=== PATIENT | female | born 1990 | race Caucasian/White ===

== ENCOUNTER → 2022-07-09 08:26 | Outpatient (BNVA) | payer OTHER, SELFPAY | PROVIDERS: PCP Pediatrics; Visit Provider Physician Assistant ==

== ENCOUNTER → 2022-09-03 08:30 | Outpatient (BNVA) | payer OTHER, SELFPAY | PROVIDERS: Visit Provider Physician Assistant | DX: E66.01 Morbid (severe) obesity due to excess calories (principal); J45.909 Unspecified asthma, uncomplicated; Z68.43 Body mass index [BMI] 50.0-59.9, adult | CPT/HCPCS: 99202 ==

== ENCOUNTER 2022-09-04 15:08 | Outpatient (REF) | payer OTHER, SELFPAY | END 2022-09-04 15:09 | disposition home or self-care (01) | LOC: HO.LNP 15:08 | PROVIDERS: PCP Pediatrics; Visit Provider Physician Assistant | DX: Z01.818 Encounter for other preprocedural examination (principal); E66.01 Morbid (severe) obesity due to excess calories; J45.909 Unspecified asthma, uncomplicated | CPT/HCPCS: 83013; 99211 ==

== ENCOUNTER 2022-09-17 10:25 | Outpatient (REF) | payer OTHER, SELFPAY ==
--- NOTE | ~2022-09-17 | XR_ITS ---
EXAMINATION: XR CHEST CLINICAL INFORMATION: Morbid (severe) obesity due to excess calories COMPARISON: None available. TECHNIQUE: 2 views of the chest were obtained. 1100. FINDINGS: No significant abnormality is noted involving the heart, lungs, mediastinum, bony thorax or soft tissues. XR/XR chest 2V IMPRESSION: Unremarkable examination.
--- NOTE | ~2022-09-17 | US_ITS ---
EXAMINATION: US COMPLETE ABDOMEN WITH LIVER ELASTOGRAPHY CLINICAL INFORMATION: Obesity. COMPARISON: CT abdomen and pelvis dated 07/02/2018. TECHNIQUE: Real-time imaging of the abdominal viscera. Noninvasive ultrasound liver fibrosis assessment is performed using Bryon ElastPQ point quantification shear wave elastography (2D-SWE) with a C5-2 MHz transducer. Multiple elastography samples are obtained. FINDINGS: PANCREAS: Normal. The visualized pancreatic head and body are normal in appearance. The remainder of the pancreas is obscured from visualization by the overlying bowel gas. ABDOMINAL AORTA: The proximal, middle, and distal aortic segments are normal in caliber. INFERIOR VENA CAVA: Visualized portions are normal. LIVER: There is hepatomegaly. The liver is normal in contour and shows generally increased echogenicity. No focal lesion or intrahepatic biliary duct dilatation. The right lobe measures 19.5 cm in length. The left lobe measures 12.4 cm in length. Portal flow is towards the liver (hepatopetal). Shear wave liver elastography median stiffness is 1.53 m/s (reference: normal median stiffness is 1.3 m/s or less). IQR/median stiffness to assess sampling precision is 0.15 (reference: good quality data set is IQR/median stiffness of 0.15 or less). GALLBLADDER: Normal. The gallbladder is physiologically distended without evidence of stones, sludge, polyps, wall thickening or pericholecystic fluid. COMMON BILE DUCT: Normal in caliber measuring 0.6 cm in diameter. RIGHT KIDNEY: Normal. No hydronephrosis. No renal calculi or focal parenchymal lesions. The kidney measures 11.2 cm in maximum dimension. LEFT KIDNEY: Normal. No hydronephrosis. No renal calculi or focal parenchymal lesions. The kidney measures 11.4 cm in maximum dimension. SPLEEN: Normal. The spleen measures 11.3 cm in maximum dimension. FREE FLUID: None. US/US abdomen comp w elastography IMPRESSION: 1. There is generalized increase in hepatic echotexture, consistent with fatty infiltration or hepatocellular disease. Please correlate clinically. No focal hepatic mass or intrahepatic biliary dilatation is seen. 2. There is hepatomegaly. 3. Liver elastography: In the absence of other known clinical signs, measurements rule out compensated advanced chronic liver disease. If there are known clinical signs, further testing may be needed for confirmation. REFERENCE: Society of Radiologists in Ultrasound Liver Stiffness Thresholds (2020): LIVER STIFFNESS THRESHOLDS: *Liver Stiffness equal or less than 1.3 m/s: High probability of being normal. *Liver Stiffness less than 1.7 m/s: In the absence of other known clinical signs, rules out compensated advanced chronic liver disease. *Liver Stiffness 1.7-2.1 m/s: Suggestive of compensated advanced chronic liver disease but need further test for confirmation. *Liver Stiffness over 2.1 m/s: Rules in compensated advanced chronic liver disease. *Liver Stiffness over 2.4 m/s: Suggestive of clinically significant portal hypertension. QUALITY OF DATA SET: *IQR/Median value equal or less than 0.15 implies a quality data set. *IQR/Median value over 0.15 implies a poor quality data set. SIGNIFICANT CHANGE FROM PRIOR EXAM: Significant change if liver stiffness measurement is 10% or greater from prior exam. OTHER CONSIDERATIONS: The stage of liver fibrosis may be overestimated in the setting of acute hepatitis, liver inflammation, elevated liver function tests, hepatic vascular congestion, obstructive cholestasis, non-fasting state, and infiltrative diseases such as amyloidosis and lymphoma. In some patients with NAFLD, the liver stiffness thresholds for compensated advanced chronic liver disease may be lower. In causes other than viral hepatitis and NAFLD, liver stiffness thresholds are not well established.
[2022-09-17 11:23] LABS: MANUAL DIFF FLAG NO
[2022-09-17 11:41] LABS: Basophils Absolute Auto 0.1 X10*3/uL (0.0-0.2); Basophils Percent Auto 0.7 % (0-2); Eosinophils Absolute Auto 0.5 X10*3/uL (0.0-0.4); Eosinophils Percent Auto 6.5 % (0-4); Hematocrit 40.9 % (37.0-47.0); Imm Gran Abs Auto 0.04 X10*3/uL (0.00-0.03); Imm Gran Pct Auto 0.6 % (0.0-0.4); Lymphocytes Absolute Auto 1.6 X10*3/uL (1.2-4.9); Lymphocytes Percent Auto 22.5 % (20-40); Mean Corpuscular HGB Conc 31.8 g/dl (31.0-35.0); Mean Corpuscular Hemoglobin 28.5 pg (27.0-33.0); Mean Corpuscular Volume 89.7 fL (80.0-98.0); Mean Platelet Volume 9.7 fL (9.4-12.3); Monocytes Absolute Auto 0.5 X10*3/uL (0.1-1.2); Monocytes Percent Auto 6.5 % (2-11); Neutrophils Absolute Auto 4.4 x10*3/uL (2.0-8.3); Neutrophils Percent Auto 63.2 % (45-73); Platelet Count 276 X10*3/uL (160-400); Red Blood Count 4.56 X10*6/uL (4.20-5.50); Red Cell Distribution Width 13.8 % (11.0-16.0)
[2022-09-17 11:52] LABS: Estimated Average Glucose 105 mg/dL; Hemoglobin A1c % 5.3 %
[2022-09-17 13:19] LABS: Folate 11.8 ng/mL (> or = 4.0); Vitamin B12 412 pg/mL (200-900)
[2022-09-18 02:19] LABS: Alanine Aminotransferase 19 U/L (0-31); Albumin Level 3.8 g/dL (3.5-5.0); Alkaline Phosphatase 98 U/L (39-117); Anion Gap 9 (12-20); Aspartate Amino Transferase 17 U/L (5-31); Bilirubin Total 0.5 mg/dL (0.0-1.0); Blood Urea Nitrogen 11 mg/dL (9-16); C Reactive Protein 1.66 mg/dL (< or = 0.50); Calcium 8.9 mg/dL (8.4-10.2); Carbon Dioxide 26 mmol/L (22-29); Chloride 107 mmol/L (96-108); Cholesterol 150 mg/dL; Estimated Glomerular Filt Rate > 60; Ferritin 31 ng/mL (10-122); Glucose Random 100 mg/dL (60-115); HDL Cholesterol 45 mg/dL; Insulin 22 uU/mL (2-29); Iron 82 mcg/dL (30-160); LDL Cholesterol Calculated 83 mg/dl; Percent Iron Saturation 26 % (15-50); Sodium 138 mmol/L (135-145); TSH reflex Free T4 1.92 uIU/mL (0.32-4.0); Total Iron Binding Capacity 313 mcg/dL (228-428); Total Protein 6.8 g/dL (6.5-8.0); Triglycerides 112 mg/dL; Unsaturated Iron Binding 231 ug/dL; Vitamin D 25-OH Total 14.4 ng/mL (>30)
[2022-09-20 05:43] LABS: PTHI 68 pg/mL (16-77)
[2022-09-22 11:08] LABS: Vitamin A 34 mcg/dL (38-98)
[2022-09-22 16:13] LABS: Zinc 72 mcg/dL (60-130)
== END 2022-09-17 10:26 | disposition home or self-care (01) ==
LOC: HO.US 10:25
PROVIDERS: PCP Pediatrics; Visit Provider Physician Assistant
DX: Z01.818 Encounter for other preprocedural examination (principal); E66.01 Morbid (severe) obesity due to excess calories; J45.909 Unspecified asthma, uncomplicated
CPT/HCPCS: 36415; 71046; 76705; 76981; 80053; 80061; 82306; 82607; 82728; 82746; 83036; 83525; 83540; 83970; 84425; 84443; 84590; 84630; 85025; 86140

== ENCOUNTER 2022-10-03 08:48 | Outpatient (AMB) | payer OTHER, SELFPAY ==
--- NOTE | 2022-10-03 08:57 | A.OFFVIS_ITS ---
Intake VS Expanded 10/03/22 08:59 Height 5 ft Weight 302 lb BMI 59.0 BP 138/76 Blood Pressure Location Rt brachial Blood Pressure Position Sitting Pulse 83 Pulse Source Pulse Oximeter Temp 97.5 F Temperature Source Temporal Artery Scan Pulse Oximetry 97 Oxygen Delivery Method Room Air Body Fat 142.6 Body Fat Percentage 47.3 Free Fat Mass 159.2 Muscle Mass 151.2 Visceral Mass 18.0 Water Mass 114.2 BMR 2,299 Intake Visit Reasons: (OV) F/U SWL Allergies No Known Allergies Allergy (Verified 10/03/22 08:58) HPI HPI Comments History of Present Illness Details This is the patients second appt for SWL. Starting weight was 303 lbs on 09/03/22. TBWL is 1 lb. Work schedule has changed and will only be working 1 night from 11 pm - 7am. 4d/ week 3pm - 11pm. Meal plan: wakes up at 7am 8:30 am - coffee with almond milk - with 2 hb eggs. 3/d/week and the 4 d has Slim Fast - 21 grams? 2pm - 6 oz (weighs in) chicken breast with lettuce - also likes broccoli and green beans. water 4pm - bar 6:30 pm - another meal - at work Exercise plan: treadmill - started 10 days ago. Now 4 d/ week - speed ?, incline ?, for 1 hour, caloreis ?? 300 Pre op work up completed as follows: SWL classes - appts - Vilma 10/10 RD appts - 10/07 H pylori - negative Labs - done CXR - NAD ECG - not done yet ULS - fatty liver R 19.5, L 12.4 UGI - 10/24 PFSH Surgical History Hx of hernia repair Family History Mother Thyroid disease Father Diabetes Sister No problems noted. Sister No problems noted. Brother No problems noted. Brother No problems noted. Daughter Asthma Daughter Asthma Social History Alcohol intake: never Patient Tobacco Use Status: Never used Tobacco Physical Exam Vital Signs: Last Vital Signs Temp 97.5 F 10/03/22 08:59 Pulse 83 10/03/22 08:59 BP 138/76 10/03/22 08:59 Pulse Ox 97 10/03/22 08:59 Oxygen Delivery Method Room Air 10/03/22 08:59 BMI result Body Mass Index 59.0 Assessment & Plan Assessment & Plan (1) Morbid obesity: Code(s): E66.01 - Morbid (severe) obesity due to excess calories Plan: Pt was not following our plans well due to change in schedule and not understanding exactly what to do. We spent a lot of time helping her create plans she can adhere to. meal plan - on overnights - can have another bar or shake at 3 am when hungry 8:30 am- coffee - with a bar 12 pm - 30 gram shake 3pm - shake 6:30 pm - 6 oz protein and vegetable - lean meats and needs more varitey of v egetables. 9 pm - bar as needed. Exercise - treadmill 4d/ week 10 wagner/minute. speed 2.8, incline 2-7 fro 350 calories burned. All upcoming appts and results reviewed. Next appt with me in 3 weeks. Patient is morbidly obese and is not considered stable at this time. I spent 30 minutes in total with patient reviewing/updating records, examining the patient and counseling the patient on weight management as detailed above. Coding Level of Care Code Est Pt Level 4 (84649) Diagnoses Morbid obesity E66.01
[2022-10-03 08:59] VITALS: BP 138/76; PULSE 83; TEMP 36.4; O2SAT 97; BMI 59.0
== END 2022-10-03 09:37 | disposition home or self-care (01) ==
PROVIDERS: PCP Pediatrics; Visit Provider Physician Assistant
DX: E66.01 Morbid (severe) obesity due to excess calories (principal); Z68.43 Body mass index [BMI] 50.0-59.9, adult
CPT/HCPCS: 99214

== ENCOUNTER → 2022-10-03 08:48 | Outpatient (BNVA) | payer OTHER, SELFPAY | PROVIDERS: PCP Pediatrics; Visit Provider Physician Assistant | DX: E66.01 Morbid (severe) obesity due to excess calories (principal); Z68.43 Body mass index [BMI] 50.0-59.9, adult | CPT/HCPCS: 99212 ==

== ENCOUNTER 2022-10-22 13:39 | Outpatient (AMB) | payer OTHER, SELFPAY ==
--- NOTE | 2022-10-22 13:33 | MHC.AMNUTRGE ---
Intake Intake Visit Reasons: VIDEO Initial Nutrition SWL Retail Stocker Required: No Allergies No Known Allergies Allergy (Verified 10/03/22 08:58) HPI Nutrition Presentation Reason for consult elevated BMI Diet Assmnt Details I am not doing good at all - doesn't like the shakes, mainly the texture that she dislikes. She has a 20 g protein Slim-Fast shakes, she is willing to continue wtih these Recognizes she lets herself get too hungry then wants to eat everything eats too much Protein bars - using atkins bars but 180kcal, 7g protein Today (1:30pm) hasn't had any shakes or anything. [facility] classes: None Dietary counseling reduction Who buys your food self Who prepares/cooks your food self Meal frequency regular: lunch (coffee ), dinner (6:30-7pm rice, chicken, fried pork, pork, wrap ) and snacks (at night - cookie ) and never: breakfast Lifestyle Eating out 4 or more times/week Exercise No Food frequency Dairy: daily, Fruit: occasionally, Vegetables: occasionally (likes several vegetables ), Grains/pasta/breads/cereal (carbs): daily, Meats/poultry/fish (protein): daily, Meat substitutes/nuts/seeds/legumes: several times weekly, Processed foods/meats: several times weekly, Restaurants/fast foods: several times weekly, Soda: daily, Juice: daily and Coffee: daily Diagnosis Nutrition problem #1 overweight/obesity As related to (etiology) #1 excess energy intake and physical inactivity As evidenced by (sign/symptom) #1 high BMI Monitoring/Goals Nutrition problem monitoring total energy intake, level of knowledge/skill, total PRO intake, total CHO intake and weight Outcome progress progressing Learning/Education Readiness to learn good Stages of change action Educational materials provided Yes Most Recent Diabetes Results: Cholesterol 150 mg/dL 09/17/22 HDL Cholesterol 45 mg/dL 09/17/22 Triglycerides 112 mg/dL 09/17/22 Creatinine 0.58 mg/dL (0.5-1.4) 09/17/22 Blood Urea Nitrogen 11 mg/dL (9-16) 09/17/22 Sodium 138 mmol/L (135-145) 09/17/22 Potassium 4.0 mmol/L (3.3-5.1) 09/17/22 Chloride 107 mmol/L (96-108) 09/17/22 Carbon Dioxide 26 mmol/L (22-29) 09/17/22 Calcium 8.9 mg/dL (8.4-10.2) 09/17/22 AST 17 U/L (5-31) 09/17/22 ALT 19 U/L (0-31) 09/17/22 Total Protein 6.8 g/dL (6.5-8.0) 09/17/22 Albumin 3.8 g/dL (3.5-5.0) 09/17/22 PFSH Surgical History Hx of hernia repair Family History Mother Thyroid disease Father Diabetes Sister No problems noted. Sister No problems noted. Brother No problems noted. Brother No problems noted. Daughter Asthma Daughter Asthma Social History Alcohol intake: never Patient Tobacco Use Status: Never used Tobacco Assessment & Plan Assessment & Plan (1) Morbid obesity: Code(s): E66.01 - Morbid (severe) obesity due to excess calories Patient Instructions: Has not made any changes to eating habits yet. Discussed the importance of protein for weight loss and eating on a consistent schedule. She will start her nutrition plan today. Change atkins bars for versions that contain at least 16 g of protein per bar. Complete online classes. Follow-up in 4 weeks Telehealth Telehealth Location of provider rendering services: practice address Location of patient: address on file Patient Identification confirmed using: Name, : Yes Telehealth method: video Patient verbally consented to treatment: Yes Patient verbally consented to billing insurance company: Yes Patient informed of any privacy concerns related to visit: Yes Minutes spent on Phone/Video with Pt.: 25 Coding Level of Care Code Nutr Indiv Intake (56339) Diagnoses Morbid obesity E66.01 Time Spent (min) 25
== END 2022-10-23 09:29 | disposition home or self-care (01) ==
LOC: HO.HBS 13:39
PROVIDERS: PCP Pediatrics; Visit Provider Dietitian, Registered
DX: E66.01 Morbid (severe) obesity due to excess calories (principal)

== ENCOUNTER → 2022-10-22 13:39 | Outpatient (BNVA) | payer OTHER, SELFPAY | PROVIDERS: PCP Pediatrics; Visit Provider Dietitian, Registered | DX: E66.01 Morbid (severe) obesity due to excess calories (principal) | CPT/HCPCS: 97802 ==

== ENCOUNTER 2022-10-27 13:00 | Outpatient (AMB) | payer OTHER, SELFPAY ==
--- NOTE | 2022-10-27 13:10 | A.OFFWM_ITS ---
Intake Intake Visit Reasons: VIDEO BH Intake Allergies No Known Allergies Allergy (Verified 10/03/22 08:58) PFSH Surgical History Hx of hernia repair Family History Mother Thyroid disease Father Diabetes Sister No problems noted. Sister No problems noted. Brother No problems noted. Brother No problems noted. Daughter Asthma Daughter Asthma Social History Alcohol intake: never Patient Tobacco Use Status: Never used Tobacco Behavioral Health Assessment Weight Management Therapy Therapy Notes Details PT is a 31 year old, , Brazilian-Speaking female who presents for initial BH assessment as part of surgical weight loss program. Presenting Concerns Referral Source WMP Provider, PT sees Valeria Maria . PT was referred [place] [facility] [place] PCP. Reason for referral Completion of behavioral health assessment as part of process for weight-loss surgery. Precipitating Event PT doesn't feels comfortable with body and weight, also gets easily tired and has realized that with current weight she will have future health issues she wants to avoid. Living Situation Current Living Situation Rent At risk of losing current housing? No Satisfied with current living situation? Yes Comments Pt lives with partner, 2 daughters and her mother. Food/Weight/Diet Expectations of change PT reported her provider told her, she's is expected to loss at least 30Lbs before surgery. She wants to focus on healthy habits and focus on william steps at the time since she gets overwhelmed and is afraid to stop program due to discouragement. History/Relationship with food Before starting the program she didn't have a set schedule for meals. Used to skip meals, leading to be very hungry and overeating. Example of daily meals: -Breakfast: 10am when not skipped. Example: eggs, sandwich, coffee. -Lunch: Skipped/ when not used to eat around 3pm. Rice or potatoes, meat. Fast food. -Dinner: usually around 8pm. Rice/beans/meat or fried food, fast food, take-out (pizza, Burmese, etc.) . Started meal plan on 09/01, currently struggling with the taste/texture of shakes and keep meal schedule. History/Relationship with weight PT reports she has always been overweight. At age 17 she was already over 200Lbs. At 23 she had her first daughter and was 250Lbs for couple years until second . After second daughter was born she reached over 300Lbs. Max weight: 306Lbs Lowest: 200Lbs at age 17. History/Relationship with dieting Beach body, Keto diet (lost 14Lbs in 2 weeks), eating changes, cutting in carbs. Usually tries for couple weeks and stops when don't see major weight loss or gets stuck in a number. Binge Eating Do you frequently eat large amounts of food in short periods of time, not feeli ng physically hungry? Yes Do you feel out of control when you eat a large amount of food in a short period of time? No Do you eat large amounts of food rapidly and typically alone? Yes Night Eating Do you wake up at least once during the night to eat? Yes If you wake up in the night, do you find that it is necessary to eat something in order to fall back asleep? No Do you have little or no appetite in the morning and feel very hungry in the evening, often overeating between dinner and when you go to bed? Yes Social History Family history and relationship PT has been in a long-term relationship with daughter's father 9 years ago. They have 2 daughters. Parents are alive, they are , mom lives with her, dad lives in [place]. she has 4 siblings. PT reports good family relationships. 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 7 and 3 years old. Developmental history and status Within normal limits. Social support Partner, mother, siblings. Some friends. Community support PCP Alevism/Spirituality None. Cultural/Ethnic information Born in [place]. Living in [place] 6 years ago. Brazilian is primary language but PT does speak [place] too. Legal Involvement and History Current or historical involvement with the legal system? None reported. Education Highest grade completed 12th Grade. Has 1 year degree in nursing. 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 Has her [place] [employer] license. Preferred learning style Learn by doing Currently enrolled in educational program? No Interested in further educational program? Yes (Nursing.) Educational Interests/Skills Pt wants to pursuit a nursing degree. 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 No Meaningful activities Family activities. Listen to music. Financial Situation Describe current financial situation Comfortable Financial assistance? Food [place] Service Service? No Mental Health and Addiction Treatment Current/Past substance abuse? No Current/Past addictive behavior concerns? No Psychiatric history Attended therapy at age 16 for about a year for depression and panic attacks, was on psych meds for a short period of time until symptoms resolved. Hospitalized in 2008 for about a week due to a suicide attempt. Last depressive episode was in 2018 after separation. Pt denies any recent depressive episode, panic symptoms and/or concerns around SI. Medical and Physical Health Summary Additional Medical History not covered in history None reported Sexual History concerns None reported Physical exam in the last year? Yes Pain Screening Current pain? Yes (feet pain, specially after work.) Pain in the last few months? No Medications Is the patient compliant with medications? Yes Does the patient have Pratt Guardian in place? Not applicable Does the patient use complimentary health approaches? No Trauma/Abuse History History of trauma? No Questionnaires PHQ-9 Over the last 2 weeks, how often have you been bothered by any of the following problems? 1. Little interest or pleasure in doing things: not at all 2. Feeling down, depressed, or hopeless: not at all 3. Trouble falling or staying asleep, or sleeping too much: not at all 4. Feeling tired or having little energy: several days 5. Poor appetite or overeating: several days (Eating more than usual.) 6. Feeling bad about yourself - or that you are a failure or have let yourself or your family down: several days 7. Trouble concentrating on things, such as reading the newspaper or watching television: not at all 8. Moving or speaking so slowly that other people could have noticed. Or the opposite - being so fidgety or restless that you have been moving around a lot more than usual: not at all 9. Thoughts that you would be better off or of hurting yourself in some way: not at all Total score: 3 Depression Screening Interpretation: Negative Source: Developed by Drs. Garrison Roberts, Kiki Lang, Osvaldo Orantes and colleagues, with an educational spencer from [employer] Binge Eating Scale Group 1 A. I don't feel self-conscious about my wt. or body size when I'm with others. B. I feel concerned about how I look to others, but it normally does not make me fell disappointed with myself C. I do get self-conscious about my appearance and wt. which makes me feel disappointed in myself. D. I feel very self-conscious about my wt. and frequently I feel intense shame and disgust for myself. I try to avoid social contacts because of my self- consciousness. Response Group 1: D Group 2 A. I don't have any difficulty eating slowly in the proper manner. B. Although I seem to gobble down foods, I don't end up feeling stuffed because of eating to much. C. At times, I tend to eat quickly and then, I feel uncomfortably full afterwards. D. I have the habit of bolting down my food, without really chewing it. When this happens I usually feel uncomfortably stuffed because I've eaten to much. Response Group 2: A Group 3 A. I feel capable to control my eating urges when I want to. B. I feel like I have failed to control my eating more than the average person. C. I feel utterly helpless when it comes to feeling in control of my eating urges. D. Because I feel so helpless about controlling my eating I have become very desperate about trying to get control. Response Group 3: A Group 4 A. I don't have the habit of eating when I'm bored. B. I sometimes eat when I'm bored, but often I'm able to get busy and get my mind off food. C. I have a regular habit of eating when I'm bored, but occasionally, I can use some other activity to get my mind off eating. D. I have a strong habit of eating when I'm bored. Nothing seems to help me breath the habit. Response Group 4: B Group 5 A. I'm usually physically hungry when I eat something. B. Occasionally, I eat something on impulse even though I really am not hungry. C. I have the regular habit of eating foods, that I might not really enjoy, to satisfy a hungry feeling even though physically, I don't need the food. D. Although I'm not physically hungry, I get a hungry feeling in my mouth that only seems to be satisfied when I eat a food, like sandwich, that fills my mouth. Sometimes, when I eat the food to satisfy my mouth hunger, I then spit the food out so I won't gain weight. Response Group 5: A Group 6 A. I don't feel any guilt or self-hate after I overeat. B. After I overeat, occasionally I feel guilt or self-hate. C. Almost all the time I experience strong guilt or self-hate after I overeat. Response Group 6: B Group 10 A. I usually am able to stop eating when I want to. I know when enough is enough. B. Every so often, I experience a compulsion to eat which I can't seem to control. C. Frequently, I experience strong urges to eat which I seem unable to control, but at other times I can control my eating urges. D. I feel incapable of controlling urges to eat. I have a fear of not being able to stop eating voluntarily. Response Group 10: C Group 12 A. I seem to eat just as much when I'm with others, Family social gatherings as when I'm by myself. B. Sometimes, when I'm with other persons, I don't eat as much as I want to eat because I'm self-conscious about my eating. C. Frequently, I eat only a small amount of food when others are present, because I'm very embarrassed about my eating. D. I feel so ashamed about overeating that I pick times to overeat when I know no one will see me. I feel like a closet eater. Response Group 12: A Group 13 A. I eat three meals a day with only an occasional between meal snack. B. I eat 3 meals a day, but I also normally snack between meals. C. When I am snacking heavily, I get in the habit of skipping regular meals. D. There are regular periods when I seem to be continually eating, with no planned meals. Response Group 13: B Binge Eating Score: 8 (Pt did not complete all items. Will need to finish next gregory. ) Score less than 17 Minimal Risk Score between 18-26 Moderate Risk Score between 27-46 High Risk Assessment & Plan Assessment & Plan (1) Eating disorder: Code(s): F50.9 - Eating disorder, unspecified (2) Depression: Code(s): F32.A - Depression, unspecified Qualifiers: Depression Type: major depressive disorder Major depression recurrence: recurrent Active/Remission status: in remission of unspecified degree Qualified Code(s): F33.40 - Major depressive disorder, recurrent, in remission, unspecified Plan Not cleared today. BES is incomplete, will need to finish next gregory. Also PT will need support with habit change and working on negative self-talk, negative feelings triggered by program expectations and weight-loss journey. Telehealth Telehealth Location of provider rendering services: other (Home office. [place], [place] Location of patient: address on file Patient Identification confirmed using: Name, : Yes Telehealth method: video Patient verbally consented to treatment: Yes Patient verbally consented to billing insurance company: Yes Patient informed of any privacy concerns related to visit: Yes Minutes spent on Phone/Video with Pt.: 60 Coding Level of Care Code New Pt Tele Psy Diag Eval (28987) Patient Type New Diagnoses Eating disorder F50.9 Depression F33.40 Depression Type: major depressive disorder Major depression recurrence: recurrent Active/Remission status: in remission of unspecified degree Time Spent (min) 60
== END 2022-10-27 14:01 | disposition home or self-care (01) ==
LOC: HO.HBST 13:10
PROVIDERS: PCP Pediatrics; Visit Provider Counselor Mental Health
DX: F50.9 Eating disorder, unspecified (principal); F33.40 Major depressive disorder, recurrent, in remission, unspecified
CPT/HCPCS: 90791

== ENCOUNTER → 2022-10-27 13:00 | Outpatient (BNVA) | payer OTHER, SELFPAY | PROVIDERS: PCP Pediatrics; Visit Provider Counselor Mental Health ==

== ENCOUNTER 2022-10-27 14:00 | Outpatient (AMB) | payer OTHER, SELFPAY ==
--- NOTE | 2022-10-27 14:21 | MHC.OFFVISWM ---
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 No weight today , no working scale at home Skips meals still. Wakes up 7am coffee 1 cup with almond milk 1pm - Orgain shake with UAM 3-4 pm - Atkins 16 gram bar 6:30 pm - broccoli or salad and chicken Exercise- 3d/wk 30 minute beach body videos. 3d/week treadmill - sped 2.7, not able to change incline, 35 minutes mayorga [address] and squats. Pre op work up completed as follows: SWL classes -? appts - Vilma 10/10, needs follow up scheduled RD appts? - 10/07, has follow up 11/21 H pylori - negative Labs - done CXR - NAD ECG - 10/28 ULS - fatty liver R 19.5, L 12.4 UGI - 10/28 PFSH Surgical History Hx of hernia repair Family History Mother Thyroid disease Father Diabetes Sister No problems noted. Sister No problems noted. Brother No problems noted. Brother No problems noted. Daughter Asthma Daughter Asthma Social History Alcohol intake: never Patient Tobacco Use Status: Never used Tobacco Assessment & Plan Assessment & Plan (1) Morbid obesity: Code(s): E66.01 - Morbid (severe) obesity due to excess calories Plan: Pt has not had any weight loss yet. Does not have adequate meal or exercise program yet. Will add 2 - 20 gram protein wise per day to her 1 shake, 1 bar and 1 meal per day. Exercise - Beach body 45 minute 4 d/week. Treadmill 2d/ week for 400 calories. Will come for weight check tomorrow along with ECG and UGI. Next appt with me in 3 weeks in the office. Patient is still morbidly obese and is not considered stable at this time. I spent 30 minutes in total speaking with the patient via video conference counseling , reviewing records and charting in patients chart. . Telehealth Telehealth Location of provider rendering services: practice address Location of patient: address on file Patient Identification confirmed using: Name, : Yes Telehealth method: video Patient verbally consented to treatment: Yes Patient verbally consented to billing insurance company: Yes Patient informed of any privacy concerns related to visit: Yes Coding Level of Care Code Tele Est Pt Level 4 (02261) Diagnoses Morbid obesity E66.01
== END 2022-10-27 14:38 | disposition home or self-care (01) ==
LOC: HO.HBS 14:37
PROVIDERS: PCP Pediatrics; Visit Provider Physician Assistant
DX: E66.01 Morbid (severe) obesity due to excess calories (principal); Z68.43 Body mass index [BMI] 50.0-59.9, adult
CPT/HCPCS: 99213

== ENCOUNTER 2022-11-20 09:51 | Outpatient (AMB) | payer OTHER, SELFPAY ==
--- NOTE | 2022-11-20 10:04 | MHC.WMTHER ---
Intake Intake Visit Reasons: (OV) F/U Allergies No Known Allergies Allergy (Verified 11/20/22 11:43) PFSH Surgical History Hx of hernia repair Family History Mother Thyroid disease Father Diabetes Sister No problems noted. Sister No problems noted. Brother No problems noted. Brother No problems noted. Daughter Asthma Daughter Asthma Social History Alcohol intake: never Patient Tobacco Use Status: Never used Tobacco Behavioral Health Assessment Weight Management Therapy Therapy Notes Details PT is a 31 year old, , [place]-Speaking female who presents for a follow up, as she was seen initially on 10/27 for intake. Pt disclosed a history of depression and panic attacks, and a hospitalization in 2008. However, Pt reports been stable and denies any recent/current safety concern around SI/SA and/or self-other harm, also there is no history of substance use reported. Scores in BES suggest mild-moderate risk for binge eating behavior, thus patient reports no issues with emotional eating. PHQ-9 scores suggest minimal Sx which indicates we will need to repeat questionnaire next gregory. But, Mental status exam is withing normal limits, suggesting person's functioning is not impaired. On the other hand, Pt reports she's not following the meal plan but she's exercising 5 days at week (30-45 min cardio and some videos, she uses bodi) and feeling frustrated about not losing weight. Since there is no risk identified and pt functioning is intact, she is cleared from the standpoint. However she will receive support and will meet with nj again. Provider will support client with realistic goals, mindset and habit building, also with Sx management to prevent relapses with depression. Presenting Concerns Referral Source P Provider, PT sees Valeria Maria . PT was referred to [facility] by PCP. Reason for referral Completion of behavioral health assessment as part of process for weight-loss surgery. Precipitating Event PT doesn't feels comfortable with body and weight, also gets easily tired and has realized that with current weight she will have future health issues she wants to avoid. Living Situation Current Living Situation Rent At risk of losing current housing? No Satisfied with current living situation? Yes Comments Pt lives with partner, 2 daughters and her mother. Food/Weight/Diet Expectations of change PT reported her provider told her, she's is expected to loss at least 30Lbs before surgery. She wants to focus on healthy habits and focus on william steps at the time since she gets overwhelmed and is afraid to stop program due to discouragement. History/Relationship with food Before starting the program she didn't have a set schedule for meals. Used to skip meals, leading to be very hungry and overeating. Example of daily meals: -Breakfast: 10am when not skipped. Example: eggs, sandwich, coffee. -Lunch: Skipped/ when not used to eat around 3pm. Rice or potatoes, meat. Fast food. -Dinner: usually around 8pm. Rice/beans/meat or fried food, fast food, take-out (pizza, Guamanian, etc.) . Started meal plan on 09/01, currently struggling with the taste/texture of shakes and keep meal schedule. History/Relationship with weight PT reports she has always been overweight. At age 17 she was already over 200Lbs. At 23 she had her first daughter and was 250Lbs for couple years until second . After second daughter was born she reached over 300Lbs. Max weight: 306Lbs Lowest: 200Lbs at age 17. History/Relationship with dieting Beach body, Keto diet (lost 14Lbs in 2 weeks), eating changes, cutting in carbs. Usually tries for couple weeks and stops when don't see major weight loss or gets stuck in a number. Binge Eating Do you frequently eat large amounts of food in short periods of time, not feeling physically hungry? Yes Do you feel out of control when you eat a large amount of food in a short period of time? No Do you eat large amounts of food rapidly and typically alone? Yes Night Eating Do you wake up at least once during the night to eat? Yes If you wake up in the night, do you find that it is necessary to eat something in order to fall back asleep? No Do you have little or no appetite in the morning and feel very hungry in the evening, often overeating between dinner and when you go to bed? Yes Social History Family history and relationship PT has been in a long-term relationship with daughter's father 9 years ago. They have 2 daughters. Parents are alive, they are , mom lives with her, dad lives in [place]. she has 4 siblings. PT reports good family relationships. Parental/Familial safety counselor obligations 2 daughters. 7 and 3 years old. Developmental history and status Within normal limits. Social support Partner, mother, siblings. Some friends. Community support PCP Jain/Spirituality None. Cultural/Ethnic information Born in [place]. Living in [place] 6 years ago. [place] is primary language but PT does speak Slovenian too. Legal Involvement and History Current or historical involvement with the legal system? None reported. Education Highest grade completed 12th Grade. Has 1 year degree in nursing. 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 Preferred learning style Learn by doing Currently enrolled in educational program? No Interested in further educational program? Yes (Nursing.) Educational Interests/Skills Pt wants to pursuit a nursing degree. 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 No Meaningful activities Family activities. Listen to music. Financial Situation Describe current financial situation Comfortable Financial assistance? Food [place] Service Service? No Mental Health and Addiction Treatment Current/Past substance abuse? No Current/Past addictive behavior concerns? No Psychiatric history Attended therapy at age 16 for about a year for depression and panic attacks, was on psych meds for a short period of time until symptoms resolved. Hospitalized in 2008 for about a week due to a suicide attempt. Last depressive episode was in 2018 after separation. Pt denies any recent depressive episode, panic symptoms and/or concerns around SI. Medical and Physical Health Summary Additional Medical History not covered in history None reported Sexual History concerns None reported Physical exam in the last year? Yes Pain Screening Current pain? Yes (feet pain, specially after work.) Pain in the last few months? No Medications Is the patient compliant with medications? Yes Does the patient have Pratt Guardian in place? Not applicable Does the patient use complimentary health approaches? No Trauma/Abuse History History of trauma? No Questionnaires PHQ-9 Over the last 2 weeks, how often have you been bothered by any of the following problems? 1. Little interest or pleasure in doing things: several days 2. Feeling down, depressed, or hopeless: several days (And frustrated due to not losing weight.) 3. Trouble falling or staying asleep, or sleeping too much: not at all 4. Feeling tired or having little energy: more than half the days 5. Poor appetite or overeating: not at all 6. Feeling bad about yourself - or that you are a failure or have let yourself or your family down: several days 7. Trouble concentrating on things, such as reading the newspaper or watching television: not at all 8. Moving or speaking so slowly that other people could have noticed. Or the opposite - being so fidgety or restless that you have been moving around a lot more than usual: several days 9. Thoughts that you would be better off or of hurting yourself in some way: not at all Total score: 6 Depression Screening Interpretation: Positive (Mild. Repeat at next visit. ) Source: Developed by Drs. Garrison Roberts, Kiki Lang, Osvaldo Orantes and colleagues, with an educational spencer from [employer]. Binge Eating Scale Group 1 A. I don't feel self-conscious about my wt. or body size when I'm with others. B. I feel concerned about how I look to others, but it normally does not make me fell disappointed with myself C. I do get self-conscious about my appearance and wt. which makes me feel disappointed in myself. D. I feel very self-conscious about my wt. and frequently I feel intense shame and disgust for myself. I try to avoid social contacts because of my self-consciousness. Response Group 1: D Group 2 A. I don't have any difficulty eating slowly in the proper manner. B. Although I seem to gobble down foods, I don't end up feeling stuffed because of eating to much. C. At times, I tend to eat quickly and then, I feel uncomfortably full afterwards. D. I have the habit of bolting down my food, without really chewing it. When this happens I usually feel uncomfortably stuffed because I've eaten to much. Response Group 2: A Group 3 A. I feel capable to control my eating urges when I want to. B. I feel like I have failed to control my eating more than the average person. C. I feel utterly helpless when it comes to feeling in control of my eating urges. D. Because I feel so helpless about controlling my eating I have become very desperate about trying to get control. Response Group 3: A Group 4 A. I don't have the habit of eating when I'm bored. B. I sometimes eat when I'm bored, but often I'm able to get busy and get my mind off food. C. I have a regular habit of eating when I'm bored, but occasionally, I can use some other activity to get my mind off eating. D. I have a strong habit of eating when I'm bored. Nothing seems to help me breath the habit. Response Group 4: B Group 5 A. I'm usually physically hungry when I eat something. B. Occasionally, I eat something on impulse even though I really am not hungry. C. I have the regular habit of eating foods, that I might not really enjoy, to satisfy a hungry feeling even though physically, I don't need the food. D. Although I'm not physically hungry, I get a hungry feeling in my mouth that only seems to be satisfied when I eat a food, like sandwich, that fills my mouth. Sometimes, when I eat the food to satisfy my mouth hunger, I then spit the food out so I won't gain weight. Response Group 5: A Group 6 A. I don't feel any guilt or self-hate after I overeat. B. After I overeat, occasionally I feel guilt or self-hate. C. Almost all the time I experience strong guilt or self-hate after I overeat. Response Group 6: B Group 7 A. I don't lose total control of my eating when dieting even after periods when I overeat. B. Sometimes when I eat a forbidden food on a diet, I feel like I blew it and eat even more. C. Frequently, I have the habit of saying to myself, I've blown it now, why not go all the way, when I overeat on a diet. When that happens I eat more. D. I have a regular habit of starting a strict diets for myself but I break the diets by going on an eating binge. My life seems to be either a feast or famine. Response Group 7: D Group 8 A. I rarely eat so much food that I feel uncomfortably stuffed afterwards. B. Usually about once a month, I each such a quantity of food, I end up feeling very stuffed. C. I have regular periods during the month when I eat large amounts of food, either at mealtime or at snacks. D. I eat so much food that I regularly feel quite uncomfortable after eating and sometimes a bit nauseous. Response Group 8: D Group 9 A. My level of calorie intake does not go up very high or go down very low on a regular basis. B. Sometimes after I overeat, I will try to reduce my caloric intake to almost nothing to compensate for the excess calories I've eaten. C. I have a regular habit of overeating during the night. It seems that my routine is not to be hungry in the morning but overeat in the evening. D. In my adult years, I have had week-long periods where I practically starve myself. This follows periods when I overeat. It seems I live a life of either feast or famine. Response Group 9: A Group 10 A. I usually am able to stop eating when I want to. I know when enough is enough. B. Every so often, I experience a compulsion to eat which I can't seem to control. C. Frequently, I experience strong urges to eat which I seem unable to control, but at other times I can control my eating urges. D. I feel incapable of controlling urges to eat. I have a fear of not being able to stop eating voluntarily. Response Group 10: C Group 11 A. I don't have any problem stopping eating when I feel full. B. I usually can stop eating when I feel full but occasionally overeat leaving me feeling uncomfortably stuffed. C. I have a problem stopping eating once I start and usually I feel uncomfortably stuffed after I eat a meal. D. Because I have a problem not being able to stop eating when I want, I sometimes have to induce vomiting to relieve my stuffed feeling. Response Group 11: A Group 12 A. I seem to eat just as much when I'm with others, Family social gatherings as when I'm by myself. B. Sometimes, when I'm with other persons, I don't eat as much as I want to eat because I'm self-conscious about my eating. C. Frequently, I eat only a small amount of food when others are present, because I'm very embarrassed about my eating. D. I feel so ashamed about overeating that I pick times to overeat when I know no one will see me. I feel like a closet eater. Response Group 12: A Group 13 A. I eat three meals a day with only an occasional between meal snack. B. I eat 3 meals a day, but I also normally snack between meals. C. When I am snacking heavily, I get in the habit of skipping regular meals. D. There are regular periods when I seem to be continually eating, with no planned meals. Response Group 13: C Group 14 A. I don't think much about trying to control unwanted eating urges. B. At least some of the time, I feel my thoughts are pre-occupied with trying to control my eating urges. C. I feel that frequently I spend much time thinking about how much I ate or about trying not to eat anymore. D. It seems to me that most of my waking hours are pre-occupied by thoughts about eating or not eating. I feel like I'm constantly struggling not to eat. Response Group 14: B Group 15 A. I don't think about food a great deal. B. I have strong craving for food but they last only for brief periods of time. C. I have days when I can't seem to think about anything else but food. D. Most of my days seem to be pre-occupied with thoughts about food. I feel like I live to eat. Response Group 15: B Group 16 A. I usually know whether or not I'm physically hungry. I take the right portion of food to satisfy me. B. Occasionally, I feel uncertain about knowing whether or not I'm physically hungry. A these times it's hard to know how much food I should take to satisfy me. C. Even though I might know how many calories I should eat, I don't have any idea what is a normal amount of food for me. Response Group 16: B Binge Eating Score: 18 Score less than 17 Minimal Risk Score between 18-26 Moderate Risk Score between 27-46 High Risk Assessment & Plan Assessment & Plan (1) Adjustment disorder: Code(s): F43.20 - Adjustment disorder, unspecified Qualifiers: Adjustment disorder type: with depressed mood Qualified Code(s): F43.21 - Adjustment disorder with depressed mood Plan Pt is cleared but will need a f/up. Needs support with habit building, working on mindset and mood/depression Sx amnagement. Next gregory: 12/15/22 @9am via Telehealth Coding Level of Care Code Established Pt Tele Psytx >53 mins (77249) Patient Type Established Diagnoses Adjustment disorder with depressed mood F43.21 Adjustment disorder type: with depressed mood Time Spent (min) 60
== END 2022-11-20 11:00 | disposition home or self-care (01) ==
PROVIDERS: PCP Pediatrics; Visit Provider Counselor Mental Health
DX: F43.21 Adjustment disorder with depressed mood (principal)
CPT/HCPCS: 90837

== ENCOUNTER 2022-11-20 09:51 | Outpatient (AMB) | payer OTHER, SELFPAY ==
--- NOTE | 2022-11-20 11:34 | A.OFFVIS_ITS ---
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 Weight loss 2.6 lbs so far/ Exercise now - treadmill 3d/wk at 2.7, incline 0 (can not change incline - 45 minutes - not sure of calories. TBP videos 2d/ wk for 40 minutes. Meal plan: wakes at 6:30 am - coffee with UAM, sometimes. BED at 12 MN 10 am - shake 1- 2pm - shake 6:30 pm - chicken breast and vegetables maybe fruit after dinner Pre op work up completed as follows: SWL classes -? 10/07 BH appts - Vilma 10/10, follow up today RD appts? - 10/07, has follow up 11/21 H pylori - negative Labs - done CXR - NAD ECG - tomorrow ULS - fatty liver R 19.5, L 12.4 UGI - 10/28 PFSH Surgical History Hx of hernia repair Family History Mother Thyroid disease Father Diabetes Sister No problems noted. Sister No problems noted. Brother No problems noted. Brother No problems noted. Daughter Asthma Daughter Asthma Social History Alcohol intake: never Patient Tobacco Use Status: Never used Tobacco Physical Exam Vital Signs: Last Vital Signs Temp 97.0 F 11/20/22 11:41 Pulse 74 11/20/22 11:41 BP 145/67 H 11/20/22 11:41 Pulse Ox 99 11/20/22 11:41 Oxygen Delivery Method Room Air 11/20/22 11:41 BMI result Body Mass Index 58.7 Assessment & Plan Assessment & Plan (1) Morbid obesity: Code(s): E66.01 - Morbid (severe) obesity due to excess calories Plan: Pt has made a llot of lifestyle changes so far and tomorrow will have ECG to complete her pre op work up. Now she will focus on looisng at lest 2 lbs per week. Meal plan changes - Add fruit to dinner Have yogurt or a bar at 9-10 pm. Exercise - alterante treadmill for 350 calories, speed of 3.0 and TBP videos - total of 5 d/ week - MT, Th, F and da Will purchase scale now and have next appt with me in 3 weeks via video. Will text me weights weekly. Patient is morbidly obese and is not considered stable at this time. I spent 30 minutes in total with patient reviewing/updating records, examining the patient and counseling the patient on weight management as detailed above. Coding Level of Care Code Est Pt Level 4 (41087) Diagnoses Morbid obesity E66.01
[2022-11-20 11:41] VITALS: BP 145/67; PULSE 74; TEMP 36.1; O2SAT 99; BMI 58.7
== END 2022-11-20 12:06 | disposition home or self-care (01) ==
PROVIDERS: PCP Pediatrics; Visit Provider Physician Assistant
DX: E66.01 Morbid (severe) obesity due to excess calories (principal); Z68.43 Body mass index [BMI] 50.0-59.9, adult
CPT/HCPCS: 99214

== ENCOUNTER → 2022-11-20 09:51 | Outpatient (BNVA) | payer OTHER, SELFPAY | PROVIDERS: PCP Pediatrics; Visit Provider Physician Assistant | DX: E66.01 Morbid (severe) obesity due to excess calories (principal); Z68.43 Body mass index [BMI] 50.0-59.9, adult | CPT/HCPCS: 99212 ==

== ENCOUNTER 2022-11-28 09:50 | Outpatient (REF) | payer OTHER, SELFPAY ==
--- NOTE | ~2022-11-28 | FL_ITS ---
EXAMINATION: XR FLUOROSCOPY UPPER GI WITH AIR CLINICAL INFORMATION: Obesity COMPARISON: None available. TECHNIQUE: Upper GI was performed using thin and thick barium and effervescent granules FINDINGS: Esophageal motility is normal. There is gastroesophageal reflux. No hernia. The stomach and duodenum are normal. No fold thickening, mass, ulcer or stricture. FLUOROSCOPY TIME: 19 seconds DOSE AREA PRODUCT: 406 uGy-m2 (microgray-meter squared) 23 saved fluoroscopic images FL/FL upper GI w air IMPRESSION: Gastroesophageal reflux otherwise unremarkable exam
--- NOTE | 2022-11-28 10:30 | ECG_ITS ---
Test Reason : e66.01 Blood Pressure : / mmHG Vent. Rate : 070 BPM Atrial Rate : 070 BPM P-R Int : 152 ms QRS Dur : 080 ms QT Int : 412 ms P-R-T Axes : 041 040 037 degrees QTc Int : 444 ms Normal sinus rhythm Normal ECG No previous ECGs available Referred By: Valeria Nunes Electronically Signed By:TENISHA COKER
== END 2022-11-28 09:51 | disposition home or self-care (01) ==
LOC: HO.XRAY 09:50
PROVIDERS: PCP Pediatrics; Visit Provider Physician Assistant
DX: Z01.818 Encounter for other preprocedural examination (principal); E66.01 Morbid (severe) obesity due to excess calories; J45.909 Unspecified asthma, uncomplicated
CPT/HCPCS: 74246; 93005

== ENCOUNTER → 2022-11-28 09:53 | Outpatient (BNV) | payer OTHER, SELFPAY | PROVIDERS: PCP Pediatrics; Visit Provider Radiology Diagnostic Radiology | DX: K21.9 Gastro-esophageal reflux disease without esophagitis (principal); Z01.818 Encounter for other preprocedural examination | CPT/HCPCS: 74246 ==

== ENCOUNTER → 2022-12-18 11:48 | Outpatient (BNVA) | payer OTHER, SELFPAY | PROVIDERS: PCP Pediatrics; Visit Provider Dietitian, Registered | DX: E66.9 Obesity, unspecified (principal) | CPT/HCPCS: 97803 ==

== ENCOUNTER 2022-12-22 10:30 | Outpatient (AMB) | payer OTHER, SELFPAY ==
--- NOTE | 2022-12-22 10:41 | MHC.OFFVISWM ---
Intake VS Expanded 12/22/22 10:52 Height 5 ft Weight 295 lb BMI 57.6 Intake Visit Reasons: VIDEO F/U SWL Allergies No Known Allergies Allergy (Verified 11/20/22 11:43) HPI HPI Comments History of Present Illness Details [facility] follow up, still recovering from stomach virus, had to stop exercising. Watery stool for over 1 week - 4 times per day. No nausea or vomiting. Another 5 lbs lost. TBWL 7 lbs.- Meal plan - 7:30 am coffee - with UAM 9am - protein shake - Slim Fast 12 pm- another shake 2pm - kiwi or strawberries 6:30 - meal of chicken breast - 6 oz each and vegetables after dinner fruit Exercise - treadmill 2 d/week - 2.7, incline up to 4. Beach body videos 3d/week Pre op work up completed as follows: [facility] classes -? 10/07 BH appts - Vilma 10/10, follow up in December, cleared RD appts? - 10/07, has follow up 11/21, cleared H pylori - negative Labs - done CXR - NAD ECG - normal ULS - fatty liver R 19.5, L 12.4 UGI - soem relfux only PFSH Surgical History Hx of hernia repair Family History Mother Thyroid disease Father Diabetes Sister No problems noted. Sister No problems noted. Brother No problems noted. Brother No problems noted. Daughter Asthma Daughter Asthma Social History Alcohol intake: never Patient Tobacco Use Status: Never used Tobacco Assessment & Plan Assessment & Plan (1) Morbid obesity: Code(s): E66.01 - Morbid (severe) obesity due to excess calories Plan: 7 lbs lost sp far and now understands more of what she needs to do. Exercise - treadmill, speed 3, incline up to 6 for 350 calories. 3d/ week, [employer] videos 2 d/ week. Meal plan - no fruit for snacks, - mid afternoon - protein water. Will see PCP for watery diarrhea. All pre op work up completed. Next appt with 3 weeks with me. Patient is still morbidly obese and is not considered stable at this time. I spent 28 minutes in total speaking with the patient via video conference counseling , reviewing records and charting in patients chart. . Telehealth Telehealth Location of provider rendering services: practice address Location of patient: address on file Patient Identification confirmed using: Name, : Yes Telehealth method: video Patient verbally consented to treatment: Yes Patient verbally consented to billing insurance company: Yes Patient informed of any privacy concerns related to visit: Yes Coding Level of Care Code Tele Est Pt Level 4 (17324) Diagnoses Morbid obesity E66.01
[2022-12-22 10:52] VITALS: BMI 57.6
== END 2022-12-22 11:01 | disposition home or self-care (01) ==
LOC: HO.HBS 11:00
PROVIDERS: PCP Pediatrics; Visit Provider Physician Assistant
DX: E66.01 Morbid (severe) obesity due to excess calories (principal); Z68.43 Body mass index [BMI] 50.0-59.9, adult
CPT/HCPCS: 99214

== ENCOUNTER → 2022-12-22 10:30 | Outpatient (BNVA) | payer OTHER, SELFPAY | PROVIDERS: PCP Pediatrics; Visit Provider Physician Assistant ==

== ENCOUNTER 2023-01-07 11:30 | Outpatient (AMB) | payer OTHER, SELFPAY ==
--- NOTE | 2023-01-07 11:58 | MHC.WMTHER ---
Intake Intake Visit Reasons: VIDEO BH F/U Allergies No Known Allergies Allergy (Verified 11/20/22 11:43) PFSH Surgical History Hx of hernia repair Family History Mother Thyroid disease Father Diabetes Sister No problems noted. Sister No problems noted. Brother No problems noted. Brother No problems noted. Daughter Asthma Daughter Asthma Social History Alcohol intake: never Patient Tobacco Use Status: Never used Tobacco Behavioral Health Assessment Weight Management Therapy Therapy Notes Details PT presents for a follow up. Reports her weightloss has been slower than expected leading her to feel frustrated. PT reports she finally found a protein that works for her and doing dinner at work during her break and trying to exercise with Videos from [employer] and using the treadmill. INTERVENTIONS: Processed functioning and factors associated to slow weight-loss . Provided support with decision making and habit building around exercise and food choices. Supported pt with strategies to deal with upcoming holidays. Administered PHQ-9. RESPONSE: Pt active and engaged. PLAN: PT Stable at this time, and doesn't need to f/up with me unless she feels in need of extra support. Questionnaires PHQ-9 Over the last 2 weeks, how often have you been bothered by any of the following problems? 1. Little interest or pleasure in doing things: not at all 2. Feeling down, depressed, or hopeless: not at all 3. Trouble falling or staying asleep, or sleeping too much: several days 4. Feeling tired or having little energy: several days (Due to recent illness.) 5. Poor appetite or overeating: several days (Less appetite due to illness.) 6. Feeling bad about yourself - or that you are a failure or have let yourself or your family down: not at all 7. Trouble concentrating on things, such as reading the newspaper or watching television: not at all 8. Moving or speaking so slowly that other people could have noticed. Or the opposite - being so fidgety or restless that you have been moving around a lot more than usual: not at all 9. Thoughts that you would be better off or of hurting yourself in some way: not at all Total score: 3 Depression Screening Interpretation: Negative Depression Screening Done: Yes 68373 - PHQ-9 Billing: Yes Source: Developed by Drs. Garrison Roberts, Kiki Lang, Osvaldo Orantes and colleagues, with an educational spencer from [employer]. Assessment & Plan Assessment & Plan (1) Adjustment disorder: Code(s): F43.20 - Adjustment disorder, unspecified Plan Pt is cleared. Advised to schedule a f/up after-surgery. Telehealth Telehealth Location of provider rendering services: other Location of patient: address on file Patient Identification confirmed using: Name, : Yes Telehealth method: video Patient verbally consented to treatment: Yes Patient verbally consented to billing insurance company: Yes Patient informed of any privacy concerns related to visit: No Minutes spent on Phone/Video with Pt.: 30 Coding Level of Care Code Established Pt Tele Psytx 30 mins (51616) Patient Type Established Diagnoses Adjustment disorder F43.20 Time Spent (min) 30 Comment 11:45-12:15pm
--- OUTSIDE RECORDS SUMMARY | 2023-01-07 12:51 | XMS_ITS | Continuity of Care Document ---
Author Name Unknown Organization [facility] Address [address] [place] [address]- Care Team Providers Care Top Icer Name Role Phone Jaimee Lee DO Primary Care Physician Encounter [facility] Date(s): 11/27/22 - 12/27/22 [facility] [address] [place], [place] [address] Allergies, Adverse Reactions, Alerts No Known Allergies Immunizations Given and Recorded Vaccine Date Status Refusal Reason influenza virus vaccine, inactivated 1 12/08/22 Gi adelina influenza virus vaccine, inactivated 12/16/19 Give n pneumococcal 20-valent conjugate vaccine 2 04/11/22 Given SARS-CoV-2 (COVID-19) mRNA BNT-162b2 vac 03/06/21 Recorded SARS-CoV-2 (COVID-19) mRNA BNT-162b2 vac 07/03/20 Recorded SARS-CoV-2 (COVID-19) mRNA BNT-162b2 vac 06/12/20 Recorded tetanus/diphtheria/pertussis, acel(Tdap) 3 10/11/19 Given tetanus/diphtheria/pertussis, acel(Tdap) 02/12/17 Recorded tetanus-diphtheria toxoids (Td) 02/12/17 Recorded 1Result Comment: [facility] [id number] 2Result Comment: [facility] #: [id number] 3Result Comment: [facility]#[id number] Medications ferrous sulfate 325 mg oral enteric coated tablet See Instructions, Take one tablet By Mouth every other day. Take with vitamin C to help absorption,# 45 tablet, Refills 5, Tot. Refills 5, Maintenance, 08/11/22 8:33:00 EDT, Instructions Replace Required Details, [facility] Start Date: 08/11/22 Status: Ordered hydrOXYzine hydrochloride 25 mg oral tablet 0.5 -1 tablet, By Mouth, 3 times a day, PRN as needed for itching, to replace prior script, # 30 each, 0 Refills, Maintenance, 07/01/21 17:30:00 EDT, Tablet, [id number], Partial fill upon patient request if the prescription is for a schedule I... Start Date: 07/01/21 Status: Ordered NovoFine 32G Tip Needle NovoFine 32G Tip Needle, See Instructions, # 100 each, Refills 0, Tot. Refills 0, Maintenance, Disposable needles, for use with Saxenda, 11/26/21 9:21:00 EDT, Supply, 153, cm, 11/26/21 8:48:00 EDT, Height, 127.19, kg, 08/13/21 19:26:00 EDT, Dry Weight Start Date: 11/26/21 Status: Ordered omeprazole 20 mg oral enteric coated capsule See Instructions, TOME RUPERTO CAPSULA TOYOUNG SHIPMAN, # 90 capsule, 0 Refills, Maintenance, 09/11/22 16:34:00 EDT, [id number], 153, cm, 08/11/22 8:09:00 EDT, Height, 127.19, kg, 08/13/21 19:26:00 EDT, Dry Weight Start Date: 09/11/22 Status: Ordered omeprazole 20 mg oral enteric coated capsule See Instructions, TOME RUPERTO CAPSULA TOS LISA SHIPMAN, # 90 capsule, 0 Refills, Maintenance, 12/08/22 9:21:00 EDT, [id number], 153, cm, 12/08/22 9:03:00 EDT, Height, 138, kg, 12/08/22 9:03:00 EDT, Dry Weight Start Date: 12/08/22 Status: Ordered ProAir HFA 90 mcg/inh inhalation aerosol with adapter 2, puffs, Inhalation, Every 4 hours, PRN, , cough, or SOB, # 1 each, Refills 0, Tot. Refills 0, Maintenance, 08/22/21 12:25:00 EDT, Aerosol, Route to Pharmacy Electronically, [id number], [id number], 153, cm, 08/22/21... Start Date: 08/22/21 Stop Date: 09/21/21 Status: Ordered Voltaren Arthritis Pain 1% topical gel = 2 Gm, Topically, 3 times a day, not to exceed 8 grams/day/single joint of upper extremities, # 180 Gm, 0 Refills, Maintenance, 12/08/22 9:36:00 EDT, [id number], Partial fill upon patient request if the prescription is for a schedule II opioi... Start Date: 12/08/22 Status: Ordered Problem List Condition Confirmation Course Effective Dates Status Health St atus Informant Asthma Confirmed Active Binge eating disorder, moderate, in partial remission Confirmed Active Morbid obesity with BMI of 50.0-59.9, adult Confirmed Active CTS (carpal tunnel syndrome) Confirmed Active Low vitamin D level Confirmed Active GERD (gastroesophageal reflux disease) Confirmed Active Ventral hernia s/p repair Confirmed Active Anemia, iron deficiency 1 Confirmed Active IBS (irritable bowel syndrome) Confirmed Active Sleep apnea Confirmed Active Social History Social History Type Response Smoking Status Never (less than 100 in lifetime); Tobacco user in household: No entered on: 02/14/19 Sex Implantable Device List Procedure Provider Procedure Date Device Type Site Repair Hernia Ventral Laparoscopic Hal Washington MD 10/18/18 Unknown Abdomen Device Identifier Serial Number Lot or Batch Number Manufacturing Date Expiration Date Distinct Identification Code MRI Safety Implantable Status Assigning Authority [id number] Unknown [id number] Unknown 07/27/20 Unknown Unknown Active GS1 Patient Care team information Care Team Personnel Name: Jaimee Lee DO Position: [facility] Physician - Primary Care Member Role: PCP Address: Address: [address] [place] [address] Adult & [place] [address]- Care Team Related Persons Name: MEG LOVELL Address: [address] Address: home [address] [place] [address] Name: SAURABH SAHU Address: home [address] [place] [address] Name: SHELLY GARG Address: home [address] [place] [address]
--- OUTSIDE RECORDS SUMMARY | 2023-01-07 12:52 | XMS_ITS | Continuity of Care Document ---
Author Name Unknown Organization [facility] ter Address [address] [place] [address]- Care Team Providers Care Community Health Director Name Role Phone Jaimee Lee DO Primary Care Physician [place] [facility] [place]23 - 01/06/[address] [address]- Discharge Disposition: A-D/C Walkout Attending Physician: Not on Staff, Attending MD Admitting Physician: Not on Staff, Admitting MD Referring Physician: Not on Staff, Referring MD Allergies, Adverse Reactions, Alerts No Known Allergies [...] tetanus-diphtheria toxoids (Td) 02/12/17 Recorded 1Result Comment: [facility] [id number] 2Result Comment: [facility] #: [id number] 3Result Comment: [facility]#[id number] Medications ferrous sulfate 325 mg oral enteric [...] 0 Refills, Maintenance, 07/01/21 17:30:00 EDT, Tablet, [facility]/pharmacy #[id number], Partial fill upon patient request if [...] coated capsule See Instructions, TOME RUPERTO CAPSULA TODOS LOS SHIPMAN, # 90 capsule, 0 Refills, Maintenance, 09/11/22 16:34:00 EDT, [id number], 153, cm, 08/11/22 8:09:00 EDT, Height, 127.19, kg, 08/13/21 19:26:00 EDT, Dry Weight Start Date: 09/11/22 Status: Ordered omeprazole 20 mg oral enteric coated capsule See Instructions, TOME RUPERTO CAPSULA TODOS LOS SHIPMAN, # 90 capsule, 0 Refills, Maintenance, [...] 12:25:00 EDT, Aerosol, Route to Pharmacy Electronically, [id number], [facility]/pharmacy #[id number], 153, cm, 08/22/21... Start Date: 08/22/21 [...] syndrome) Confirmed Active Sleep apnea Confirmed Active Vital Signs Most recent to oldest [Reference Range]: 1 2 Height 153 cm (01/06/23 8:41 AM) Oxygen Saturation [94-100 %] 99 % (01/06/23 8:41 AM) 97 % (01/06/23 8:38 AM) Pulse Rate [55-90 bpm] 89 bpm (01/06/23 8:41 AM) 94 bpm *H* (01/06/23 8:38 AM) Blood Pressure [90-138/55-84 mm Hg] 107/ 91mm Hg (01/06/23 8:41 AM) Respiratory Rate [16-30 br/min] 18 br/mi n (01/06/23 8:41 AM) 18 br/min (01/06/23 8:38 AM) Temperature [96.8-100.4 DegF] 98.1 DegF (01/06/23 8:41 AM) Mode of Delivery (Oxygen) Room air (01/06/23 8:41 AM) Room air (01/06/23 8:38 AM) Blood pressure sites Arm, left (11/7/23 8:41 AM) Temperature Route Oral (01/06/23 8:41 AM) Dry Weight 138 kg (01/06/23 8:41 AM) Dry Weight Obtained Via Patient/family s tated (01/06/23 8:41 AM) Social History Social History Type Response Smoking [...] Code MRI Safety Implantable Status Assigning Authority [id number] Unknown [id number] Unknown 07/27/20 Unknown Unknown Active GS1 EKG study * Event Display: ECG 12-Lead Authored Date: Please click on pdf link to open report * Event Display: ECG 12-Lead Authored Date: Ventricular Rate: 85 BPM Atrial Rate: 85 BPM P-R Interval: 148 ms QRS Duration: 80 ms Q-T Interval: 380 ms QTC Calculation(Bazett): 452 ms P Sutter: 33 degrees R Sutter: 25 degrees T Sutter: 49 degrees Normal sinus rhythm Normal ECG No previous ECGs available Confirmed by CHASTITY JACQUES ([id number]) on 01/06/2023 1:14:46 PM [place]: CHASTITY JACQUES Patient Care team information Care Team Personnel Name: Jaimee Lee DO Position: [facility] Physician - Primary Care Member Role: PCP Address: Address: [address] [place] [address] Adult [place] [address]- Care Team Related Persons Name: MEG LOVELL Address: [address] Address: [address] [place] [address] Name: SAURABH SAHU Address: home [address] [place] [address] Name: SHELLY GARG Address: home [address] [place] [address]
--- OUTSIDE RECORDS SUMMARY | 2023-01-07 12:52 | XMS_ITS | Continuity of Care Document ---
Author Name Unknown Organization [facility] Address [address] [place] [address]- Care Team Providers Care Tank Assembler Name Role Phone Jaimee Lee DO Primary Care Physician ( [phone] [place] [facility] [place] 12/16/22 - 12/23/22 [facility] [address] [place], [place] [address] Attending Physician: Phyllsi Bermeo MD Referring Physician: Jaimee Lee DO Allergies, Adverse Reactions, Alerts No Known Allergies [...] tetanus-diphtheria toxoids (Td) 02/12/17 Recorded 1Result Comment: [facility] [id number] 2Result Comment: [facility] #: [id number] 3Result Comment: [facility]#[id number] Medications ferrous sulfate 325 mg oral enteric [...] 0 Refills, Maintenance, 07/01/21 17:30:00 EDT, Tablet, [facility]/pharmacy #[id number], Partial fill upon patient request if [...] capsule, 0 Refills, Maintenance, 09/11/22 16:34:00 EDT, [facility]/pharmacy #[id number], 153, cm, 08/11/22 8:09:00 EDT, Height, [...] 12:25:00 EDT, Aerosol, Route to Pharmacy Electronically, [id number], [facility]/pharmacy #[id number], 153, cm, 08/22/21... Start Date: 08/22/21 [...] Most recent to oldest [Reference Range]: 1 Height 153 cm (12/16/22 9:46 AM) Oxygen Saturation [94-100 %] 100 % (12/16/22 9:46 AM) Pulse Rate [55-90 bpm] 77 bpm (12/16/22 9:46 AM) Blood Pressure [90-138/55-84 mm Hg] 134/ 86mm Hg (12/16/22 9:46 AM) Respiratory Rate [16-30 br/min] 24 br/mi n (12/16/22 9:46 AM) Temperature [96.8-100.4 DegF] 97.0 DegF (12/16/22 9:46 AM) Mode of Delivery (Oxygen) Room air (12/16/22 9:46 AM) Blood pressure sites Arm, left (12/16/22 9:46 AM) Temperature Route Temporal (12/16/22 9:46 AM) Social History Social History Type Response Smoking Status Never (less than 100 in lifetime); Tobacco user in household: No entered on: 12/16/19 Sex Implantable Device List Procedure Provider Procedure Date Device Type Site Repair Hernia Ventral Laparoscopic Hal Washington MD 10/18/18 Unknown Abdomen Device Identifier Serial Number Lot or Batch Number Manufacturing Date Expiration Date Distinct Identification Code MRI Safety Implantable Status Assigning Authority [id number] Unknown [id number] Unknown 07/27/20 Unknown Unknown Active GS1 Note * Twyla Lang: PERFORM, SIGN, VERIFY Event Display: Patient Education/Instruction Authored Date: [id number] [facility] *[facility] Clinical Summary Name DONITA VELIZ Age 32 Years 1990 PCP Jaimee Lee DO PCP Visit Date 12/16/2022 09:23:00 Additional Instructions: Scheduled Appointments?? Future Appointments ?No Future Appointments Scheduled Follow-Up Instructions ?? Diagnosis Medications: Please continue your medications until treatment is completed or stopped by your provider. Discuss any questions related to medications with your provider. New Medications [id number] [address], [place] [id number], [phone] Ondansetron (ondansetron 4 mg oral tablet) 1 tab(s) Oral every 8 hours as needed Nausea & Vomiting for 3 Days. Refills: 0. Next Dose: Medications to Continue with No Changes These medications were not printed or sent to your pharmacy Albuterol (ProAir HFA 90 mcg/inh inhalation aerosol with adapter) 2 puff(s) Inhalation every 4 hours as needed Wheezing/Shortness of Breath for 30 Days. , cough, or SOB. Refills: 0. Next Dose: Diclofenac Topical (Voltaren Arthritis Pain 1% topical gel) 2 gram Topically 3 times a day. not to exceed 8 grams/day/single joint of upper extremities. Refills: 0. Next Dose: Ferrous Sulfate (ferrous sulfate 325 mg oral enteric coated tablet) Take one tablet By Mouth every other day. Take with vitamin C to help absorption. Refills: 5. Next Dose: HydrOXYzine (hydrOXYzine hydrochloride 25 mg oral tablet) 0.5 -1 tablet Oral 3 times a day as needed as needed for itching. to replace prior script. Refills: 0. Next Dose: Miscellaneous Rx (NovoFine 32G Tip Needle) Disposable needles, for use with Saxenda. Refills: 0. Next Dose: Omeprazole (omeprazole 20 mg oral enteric coated capsule) TOME RUPERTO CAPSULA TODOS LOS SHIPMAN. Refills:0. Next Dose: Omeprazole (omeprazole 20 mg oral enteric coated capsule) TOME RUPERTO CAPSULA TODOS LOS SHIPMAN. Refills:0. Next Dose: Contact Your Physician Prior to Taking the Following Medications semaglutide (Wegovy (0.25 mg dose) subcutaneous solution) 0.25 Milligram Subcutaneous Infusion every week. rotate injection sites Dx: Obese BMI >55 ; elevated blood pressure TEST SCRIPT FOR INSURANCE in the abdomen, thigh, or upper arm. Refills: 1. Allergy Info:?? NKA Medications Given This Visit Future Orders ?No future orders Vital Signs Height 153 cm Weight BMI Blood Pressure 134 mm Hg/86 mm Hg Temperature 97.0 DegF Pulse Rate 77 bpm Respiratory Rate 24 br/min 02 Sat Mode of Delivery 100 %/Room air You can now view a summary of your hospital visit from the comfort of your home through a free online portal called [employer]. [employer] is a website that allows you to securely view your medical information including discharge summary, medications and follow-up visits. ??You can alsosend a secure electronic message to your doctor???s office to request appointments, renew medications or just ask a question. You can enroll at [email or web address] or register during your next office visit. Disclaimer:?? The information provided is of a general nature and is intended to be used in conjunction with the recommendations and advice of your health care practitioner. ??Every effort has been made to ensure that the information provided is accurate and complete at the time it is provided to you however, as your needs change, or, as new ??information becomes available, different or additional instructions may be required. If you have questions, please consult with your primary care provider or pharmacist, as appropriate. ??This information is not intended to serve as substitution for assessment and evaluation by a qualified health care provider. If you do not have a primary care provider, you may find a [facility] provider by calling [facility] [employer] at [phone]. [facility], in keeping with [facility] guidance, no longer requires face masks for staff, patientsor visitors in most situations. Similar to time spent indoors at other locations, there is the chance that you were exposed to respiratory viruses during your time with us (such as flu or COVID-19).? If you develop symptoms concerning for a viral respiratory infection, please seek testing (and treatment if indicated) from your medical provider or home test kit. For information about the plan of care including goals and instructions for your diagnosis, please see the patient education orders section of this document. Patient Education Materials?? The content of this educational material or handout may have been modified, supplemented, or adapted from its original content and format to support your individualized medical care. Patient Care team information Care Team Personnel Name: Jaimee Lee DO Position: [facility] Physician - Primary Care Member Role: PCP Address: Address: [address] [place] [address] Adult [place] [address]- Care Team Related Persons Name: MEG LOVELL Address: [address] Address: [address] [place] [address] Name: SAURABH SAHU Address: home [address] [place] [address] Name: SHELLY GARG Address: [address] [place] [address]
== END 2023-01-07 12:15 | disposition home or self-care (01) ==
LOC: HO.HBST 12:49
PROVIDERS: PCP Pediatrics; Visit Provider Counselor Mental Health
DX: F43.20 Adjustment disorder, unspecified (principal)
CPT/HCPCS: 90832

== ENCOUNTER → 2023-01-07 11:30 | Outpatient (BNVA) | payer OTHER, SELFPAY | PROVIDERS: PCP Pediatrics; Visit Provider Counselor Mental Health | DX: F43.20 Adjustment disorder, unspecified (principal) ==

== ENCOUNTER 2023-02-02 13:30 | Outpatient (AMB) | payer OTHER, SELFPAY ==
--- NOTE | 2023-02-02 13:34 | MHC.OFFVISWM ---
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 Last appt 12/22 at 295. Going on vacation from March 03 - Apr 02. Has COVID now. Meal plan: coffee with almond milk only 9am -Slim fast or Fairlife 12pm- shake 5:30 - 10 - 12 forks chicken with 10 - 12 forks vegetables mostly fruit after dinner - Exercise - not this week. Gym 300 calories on treadmill - 5 d/week. Speed 3.0, incline up to 6. Pre op work up completed as follows: SW classes -? 10/07 BH appts - Vilma 10/10, follow up in December, cleared RD appts? - 10/07, has follow up 11/21, cleared H pylori - negative Labs - done CXR - NAD ECG - normal ULS - fatty liver R 19.5, L 12.4 UGI - some relfux only PFSH Surgical History Hx of hernia repair Family History Mother Thyroid disease Father Diabetes Sister No problems noted. Sister No problems noted. Brother No problems noted. Brother No problems noted. Daughter Asthma Daughter Asthma Social History Alcohol intake: never Patient Tobacco Use Status: Never used Tobacco Assessment & Plan Assessment & Plan (1) Morbid obesity: Code(s): E66.01 - Morbid (severe) obesity due to excess calories Plan: Pt has completed all pre op work up and has lost 4.6%. Changes to meal plan: when needs to buy more shakes buy protien powder and mix with UAM or water 8:30 - shake 12 pm - 'shake 5pm - dinner - no change, may have some fruit with her dinner bar after dinner Exercise - increase to 400 wagner 5d/week on treadmill Next appt with me in 3 weeks. Patient is still morbidly obese and is not considered stable at this time. I spent 30 minutes in total speaking with the patient via video conference counseling , reviewing records and charting in patients chart. . Telehealth Telehealth Location of provider rendering services: practice address Location of patient: address on file Patient Identification confirmed using: Name, : Yes Telehealth method: video Patient verbally consented to treatment: Yes Patient verbally consented to billing insurance company: Yes Patient informed of any privacy concerns related to visit: Yes Coding Level of Care Code Tele Est Pt Level 4 (08928) Diagnoses Morbid obesity E66.01
--- OUTSIDE RECORDS SUMMARY | 2023-02-02 13:40 | XMS_ITS | Continuity of Care Document ---
Author Name Unknown Organization [facility] Address [address] [place] [address]- Care Team Providers Care Quiller Tender Name Role Phone Jaimee Lee DO Primary Care Physician ( [phone] [place] [facility] [place](s[place] 12/16/22 - 01/15/23 [facility] [address] [place], [place] [address] Attending Physician: Eric Muñoz Admitting Physician: AdmEric trujillo Referring Physician: Admtr ArHilda Allergies, Adverse Reactions, Alerts No Known Allergies [...] tetanus-diphtheria toxoids (Td) 02/12/17 Recorded 1Result Comment: [facility] [id number] 2Result Comment: [facility] #: [id number] 3Result Comment: [facility]#[id number] Medications ferrous sulfate 325 mg oral enteric [...] 0 Refills, Maintenance, 07/01/21 17:30:00 EDT, Tablet, [facility]/pharmacy #[id number], Partial fill upon patient request if [...] capsule See Instructions, TOME RUPERTO CAPSULA TOS LOS SHIPMAN, # 90 capsule, 0 Refills, Maintenance, 09/11/22 16:34:00 EDT, [id number], 153, cm, 08/11/22 8:09:00 EDT, Height, 127.19, kg, 08/13/21 19:26:00 EDT, Dry Weight Start Date: 09/11/22 Status: Ordered omeprazole 20 mg oral enteric coated capsule See Instructions, OSWALDOE RUPERTO CAPSULA TODOS LOS SHIPMAN, # 90 [...] 12:25:00 EDT, Aerosol, Route to Pharmacy Electronically, [id number], [facility]/pharmacy #[id number], 153, cm, 08/22/21... Start Date: 08/22/21 Stop Date: 09/21/21 Status: Ordered Voltaren Arthritis Pain 1% topical gel = 2 Gm, Topically, 3 times a day, not to exceed 8 grams/day/single joint of upper extremities, # 180 Gm, 0 Refills, Maintenance, 12/08/22 9:36:00 EDT, [facility]/pharmacy #[id number], Partial fill upon patient request if [...] Code MRI Safety Implantable Status Assigning Authority [id number] Unknown [id number] Unknown 07/27/20 Unknown Unknown Active GS1 Patient Care team information Care Team Personnel Name: Jaimee Lee DO Position: S Physician - Primary Care Member Role: PCP Address: Address: [address] [place] [address] Adult [facility] [place] [address]- Care Team Related Persons Name: MEG LOVELL Address: [address] Address: home [address] [place] [address] Name: SAURABH SAHU Address: home [address] [place] [address] Name: SHELLY GARG Address: home [address] [place] [address]
[2023-02-02 13:43] VITALS: BMI 56.4
== END 2023-02-02 13:50 | disposition home or self-care (01) ==
LOC: HO.HBS 13:34
PROVIDERS: PCP Pediatrics; Visit Provider Physician Assistant
DX: E66.01 Morbid (severe) obesity due to excess calories (principal)
CPT/HCPCS: 99214

== ENCOUNTER → 2023-02-02 13:30 | Outpatient (BNVA) | payer OTHER, SELFPAY | PROVIDERS: PCP Pediatrics; Visit Provider Physician Assistant ==

== ENCOUNTER 2023-02-27 09:30 | Outpatient (AMB) | payer SELFPAY ==
--- NOTE | 2023-02-27 09:44 | A.OFFVIS_ITS ---
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 Meal plan 7am coffee - UAM 9am -Slim fast only 21 grams, Orgain pow yuriy at home then does not eat anything until 3pm - shake 6pm - 12 forks of chicken and 12 forks v egetable Does not have have the bar Drinks protein water - but doesn't know how much 3 d/ week Treadmill - 350 calories over 1 hour, speed - 4, incline, 6. Pre op work up completed as follows: [facility] classes -? 10/07 BH appts - Vilma 10/10, follow up in December, cleared RD appts? - 10/07, has follow up 11/21, cleared H pylori - negative Labs - done CXR - NAD ECG - normal ULS - fatty liver R 19.5, L 12.4 UGI - some reflux only PFSH Surgical History Hx of hernia repair Family History Mother Thyroid disease Father Diabetes Sister No problems noted. Sister No problems noted. Brother No problems noted. Brother No problems noted. Daughter Asthma Daughter Asthma Social History Alcohol intake: never Patient Tobacco Use Status: Never used Tobacco Assessment & Plan Assessment & Plan (1) Morbid obesity: Code(s): E66.01 - Morbid (severe) obesity due to excess calories Plan: Needs to stop skipping meals and needs better exercise routine. Once again we talked about the importance of healthy nutrition for weight loss. She will be on vacation until first week in April - goal of 2 lbs loss per week while awayl. All pre op work up completed. 9am - Orgain with UAM 12pm - same 3pm- bar 6-7 pm - 12 forks each Exercise - speed 3.0, incline 2 -7 (every 3 minutes). 350 calories in 35 - 40 minutes. Text me weekly weights, next appt in early April. Patient is still morbidly obese and is not considered stable at this time. I spent 28 minutes in total speaking with the patient via video conference counseling , reviewing records and charting in patients chart. . Telehealth Telehealth Location of provider rendering services: practice address Location of patient: address on file Telehealth method: video Patient verbally consented to treatment: Yes Patient verbally consented to billing insurance company: Yes Patient informed of any privacy concerns related to visit: Yes Coding Level of Care Code Tele Est Pt Level 4 (19746) Diagnoses Morbid obesity E66.01
[2023-02-27 09:45] VITALS: BMI 55.8
--- OUTSIDE RECORDS SUMMARY | 2023-02-27 09:51 | XMS_ITS | Continuity of Care Document ---
Author Name Unknown Organization [facility] Address [address] [place] [address]- Care Team Providers Care Weathercaster Name Role Phone Jaimee Lee DO Primary Care Physician Encounter [facility] Date(s): 01/06/23 - 02/05/23 [facility] [address] [place], [place] [address] Allergies, Adverse Reactions, Alerts No Known [...] tetanus-diphtheria toxoids (Td) 02/12/17 Recorded 1Result Comment: [facility] [id number] 2Result Comment: [facility] #: [id number] 3Result Comment: [facility]#[id number] Medications ferrous sulfate 325 mg oral enteric [...] 0 Refills, Maintenance, 07/01/21 17:30:00 EDT, Tablet, [facility]/pharmacy #[id number], Partial fill upon patient request if [...] mg oral enteric coated capsule See Instructions, SANDY HICKEY CAPSULA TOSEBASTIAN, # 90 capsule, 0 Refills, Maintenance, 09/11/22 16:34:00 EDT, [facility]/pharmacy #[id number], 153, cm, 08/11/22 8:09:00 EDT, Height, 127.19, kg, 08/13/21 19:26:00 EDT, Dry Weight Start Date: 09/11/22 Status: Ordered omeprazole 20 mg oral enteric coated capsule See Instructions, SANDY HICKEY CAPSULA TOS LISA SHIPMAN, # 90 capsule, 0 Refills, Maintenance, 12/08/22 9:21:00 EDT, [facility]/pharmacy #[id number], 153, cm, 12/08/22 9:03:00 EDT, Height, 138, kg, 12/08/22 9:03:00 EDT, Dry Weight Start Date: 12/08/22 Status: Ordered ProAir HFA 90 mcg/inh inhalation aerosol with adapter 2, puffs, Inhalation, Every 4 hours, PRN, , cough, or SOB, # 1 each, Refills 0, Tot. Refills 0, Maintenance, 08/22/21 12:25:00 EDT, Aerosol, Route to Pharmacy Electronically, [id number], [id number], 153, cm, 08/22/21... Start Date: [...] Code MRI Safety Implantable Status Assigning Authority [id number] Unknown [id number] Unknown 07/27/20 Unknown Unknown Active GS1 Patient Care team information Care Team Personnel Name: Jiamee Lee DO Position: S Physician - Primary Care Member Role: PCP Address: Address: [address] [place] [address] Adult [place] [address]- Care Team Related Persons Name: MEG LOVELL Address: [address] Address: home [address] [place] [address] Name: SAURABH SAHU Address: home [address] [place] [address] Name: SHELLY GARG Address: [address] [place] [address]
== END 2023-02-27 10:01 | disposition home or self-care (01) ==
LOC: HO.HBS 09:45
PROVIDERS: PCP Pediatrics; Visit Provider Physician Assistant
DX: E66.01 Morbid (severe) obesity due to excess calories (principal)
CPT/HCPCS: 99214

== ENCOUNTER → 2023-02-27 09:30 | Outpatient (BNVA) | payer OTHER, SELFPAY | PROVIDERS: PCP Pediatrics; Visit Provider Physician Assistant | DX: E66.01 Morbid (severe) obesity due to excess calories (principal) ==